=== PATIENT | female | born 1960 | race Caucasian/White ===

== ENCOUNTER 2017-01-28 12:24 | Day surgery (SDC) | payer OTHER ==
[~2017-01-28] VITALS: Ht 152.4 cm; Wt 59.0 kg
[2017-01-28 12:58] VITALS: Ht 152.4 cm; Wt 59.0 kg
[2017-01-28] MEDS ORDERED: PANT40TA4 PO (13:15)
[2017-01-28] MEDS ORDERED: RANI300C7 PO (13:15)
[2017-01-28] MEDS ORDERED: ALEN70TA30 PO (13:15)
[2017-01-28] MEDS ORDERED: ZOC20 PO (13:15)
[2017-01-28 13:56] VITALS: BP 104/64; PULSE 75; RESP 16
[2017-01-28] MEDS ORDERED: PROPOFOL 20 ML ONE (15:01)
[2017-01-28 15:33] VITALS: BP 95/64; RESP 20
--- NOTE | 2017-01-29 01:48 | GILP ---
DATE OF PROCEDURE: NAME OF PROCEDURE: Colonoscopy to cecum. SURGEON: Abe Giordano MD HISTORY AND INDICATIONS: The patient here for colorectal cancer screening. PREMEDICATION: Monitored anesthesia care by anesthesiologist. PREPARATION: Poor in the area of the cecum. Extensive lavage was applied, but still this area was suboptimal on the exam. TECHNIQUE: After informed consent, with the patient/relatives understanding the procedure, its anthony cations potential risks and complications including but not limited to allergic reaction, bleeding, perforation, infection, missed lesions and after all pertinent questions were answered to the patien t's satisfaction, the patient/relatives signed the witnessed informed consent. Following this, premedication was administered slowly IV push by under careful cardiovascular and re spiratory monitoring with pulse oximetry, automatic blood pressure and monitor worker. Once the sedativ e effect was achieved, the patient was placed in the left lateral decubitus position, digital rectal examination was performed. The colonoscope was then introduced and advanced under visual control th roughout all segments of the colon including: the rectum, sigmoid, descending colon, splenic flexure , transverse colon, hepatic flexure, ascending colon and finally reaching the cecum which was clearl y identified by transillumination, finger indentation and the ileocecal valve. Careful examination o f the mucosa of the lower gastrointestinal tract both on insertion as well as withdrawal of the inst rument disclosed the following findings: Colonic Mucosa: The colonic mucosa unremarkable throughout. The area of the cecum with poor prep, was extensively lavaged. No gross abnormalities are noted, but polyps as large as 5 mm could easily have been missed. The instrument was withdrawn. On withdrawal of the instrument, no additional abnormalities are note d with exception of moderate-sized internal hemorrhoids. The instrument was then withdrawn. The patient tolerated the procedure well and was transferred out of the endoscopy suite awake and in good condition to continue recovery under observation. IMPRESSION: 1. Poor preparation in the cecum. 2. Otherwise, normal colonic mucosa to cecum. No gross lesions. 3. Moderate-sized internal hemorrhoids. PLAN: The patient will be followed up as an outpatient. Early re-evaluation in 3 years is recommen ded given the poor preparation encountered today. Dictated By: ABE GIORDANO MS/CAL Conf#: [id number] DID#: [id number]
== END 2017-01-28 16:07 | disposition home or self-care (01) ==
LOC: GIL 12:24
PROVIDERS: ATTEND Internal Medicine Gastroenterology
DX: Z12.11 Encounter for screening for malignant neoplasm of colon (principal); K64.8 Other hemorrhoids
CPT/HCPCS: 45378; Z7610